=== PATIENT | female | born 1955 | race Caucasian/White ===

== ENCOUNTER 2024-11-06 17:16 | Emergency (ER) | payer BC, OTHER ==
[~2024-11-06] VITALS: Ht 162.6 cm; Wt 82.0 kg
[2024-11-06 17:20] VITALS: O2SAT 98
[2024-11-06] MEDS: LIDOCAINE HCL 1% 20ML VIAL INFIL ONE (17:30)
[2024-11-06] MEDS: KETOROLAC 15MG/ML VIAL IV ONE (18:54)
[2024-11-06] MEDS: MORPHINE SULFATE 4 MG/ML INJ (FOR IV/IM USE) IV ONE (18:54)
[2024-11-06] MEDS: LORAZEPAM 2MG/ML UD SYRINGE IV SCH (18:55)
[2024-11-06] MEDS ORDERED: IBUP-2030 MT (20:24)
[2024-11-06 20:42] VITALS: BP 118/53; PULSE 91; RESP 22; TEMP 36.9; O2SAT 98
== END 2024-11-06 20:59 | disposition home or self-care (01) ==
LOC: ER 17:16
DX: S43.014A Anterior dislocation of right humerus, initial encounter (principal); W01.0XXA Fall on same level from slipping, tripping and stumbling without subsequent striking against object, initial encounter; Y93.89 Activity, other specified; Y92.89 Other specified places as the place of occurrence of the external cause; Y99.8 Other external cause status
CPT/HCPCS: 73030; 23650; 96374; 96375; 99284; J1885; J2003; J2060; J2270; Z7610